=== PATIENT | female | born 1960 | race Two or more races ===

== ENCOUNTER 2024-07-18 20:18 | Inpatient (IN) | payer OTHER, MEDICAID ==
[2024-07-17] MEDS: MAGNESIUM SULFATE/D5W 100 ML IV SCH (01:15)
[~2024-07-18] VITALS: Ht 162.6 cm; Wt 81.6 kg
[2024-07-18 21:15] LABS: BASOPHILS # (AUTO) 0.1 K/UL (0.0-0.2); BASOPHILS % (AUTO) 0.9 % (0.0-2.0); HEMATOCRIT 30.5 % (31.2-41.9); HEMOGLOBIN 9.8 g/dL (10.9-14.3); LYMPHOCYTES # (AUTO) 1.2 K/uL (0.8-4.8); LYMPHOCYTES % (AUTO) 11.8 % (20.5-51.5); MEAN CORPUSCULAR HEMOGLOBIN 20.6 uug (24.7-32.8); MEAN CORPUSCULAR HGB CONC 32 g/dL (32.3-35.6); MEAN CORPUSCULAR VOLUME 64.4 fL (75.5-95.3); MONOCYTES # (AUTO) 0.5 K/uL (0.1-1.30); MONOCYTES % (AUTO) 4.5 % (0.0-11.0); NEUTROPHILS # (AUTO) 8.2 K/uL (1.8-8.9); NEUTROPHILS % (AUTO) 82.8 % (38.5-71.5); PLATELET COUNT (AUTO) 307 K/uL (179-408); RED BLOOD CELL COUNT(AUTO) 4.74 MIL/uL (3.63-4.92); RED CELL DISTRIBUTION WIDTH 18.8 % (12.3-17.7); WHITE BLOOD COUNT (AUTO) 9.9 K/uL (3.8-11.8)
[2024-07-18 21:17] LABS: DIFFERENTIAL COMMENT 1
[2024-07-18 21:33] LABS: ALANINE AMINOTRANSFERASE 27 U/L (14-59); ALBUMIN 3.2 g/dL (3.4-5.0); ALKALINE PHOSPHATASE 131 U/L (50-136); ASPARTATE AMINOTRANSFERASE 16 U/L (15-37); BILIRUBIN,DIRECT 0.3 mg/dL (0.0-0.2); CALCIUM 9.5 mg/dL (8.5-10.1); CARBON DIOXIDE 27 mmol/L (21-32); CHLORIDE 99 mmol/L (98-107); CREATININE 0.7 mg/dL (0.6-1.3); GLUCOSE 309 mg/dL (74-106); LIPASE 52 U/L (16-77); POTASSIUM 3.1 mmol/L (3.5-5.1); SODIUM SERUM 141 mmol/L (136-145); TOTAL PROTEIN, SERUM 7.9 g/dL (6.4-8.2); UREA NITROGEN, BLOOD 19 mg/dL (7-18)
[2024-07-18 21:36] LABS: AMMONIA < 10 umol/L (11-32)
[2024-07-18 21:40] LABS: THYROID STIMULATING HORMONE 2.845 mIU/mL (0.358-3.740)
[2024-07-18] MEDS: IV NS 1000 ML 1,000 ML IV ONE (22:00)
[2024-07-18] MEDS ORDERED: MORPHINE SULFATE 2 MG/1 ML DISP.SYRIN ONE (22:03)
[2024-07-18] MEDS ORDERED: ONDANSETRON 4 MG/2 ML VIAL ONE (22:03)
[2024-07-18] MEDS: ONDANSETRON 4 MG/2 ML VIAL IV ONE (22:12)
[2024-07-18] MEDS: MORPHINE SULFATE 2 MG/1 ML DISP.SYRIN IV ONE (22:14)
[2024-07-18] MEDS: POTASSIUM CHLORIDE 20 MEQ TAB.PRT.SR PO ONE (23:15)
[2024-07-19 00:59] LABS: *BILIRUBIN,URIN NEGATIVE (NEGATIVE); *BLOOD, URINE NEGATIVE (NEGATIVE); *CLARITY,URINE CLEAR (CLEAR); *COLOR,URINE YELLOW (YELLOW); *KETONES,URINE 1+ (NEGATIVE); *PROTEIN,URINE NEGATIVE (NEGATIVE); *UROBILINOGEN,URINE 0.2 E.U./dl (NORMAL); LEUKOCYTE ESTERASE ,URINE NEGATIVE (NEGATIVE); NITRITE, URINE NEGATIVE (NEGATIVE); PH,URINE 6.5 (5.0-8.0)
[2024-07-19 01:01] LABS: UGLUCOSE 2+ (NEGATIVE)
[2024-07-19] MEDS ORDERED: ALBU8.5H8 INH (01:08)
[2024-07-19] MEDS ORDERED: FURO20TA4 PO (01:08)
[2024-07-19] MEDS ORDERED: METO-357 PO (01:08)
[2024-07-19] MEDS ORDERED: OMEP40CA21 PO (01:08)
[2024-07-19] MEDS ORDERED: SAXA5TAB PO (01:08)
[2024-07-19] MEDS ORDERED: GLIM4TAB37 PO (01:08)
[2024-07-19] MEDS ORDERED: MECL-159 PO (01:08)
[2024-07-19] MEDS ORDERED: MELO-107 PO (01:08)
[2024-07-19] MEDS ORDERED: INSU100V7 SQ ×2 (01:09)
[2024-07-19] MEDS: IV NS 1000 ML 1,000 ML IV ONE (01:12)
[2024-07-19 01:42] LABS: RBC,URINE 0-3 /HPF (0-3)
[2024-07-19 01:43] LABS: BACTERIA,URINE MODERATE /HPF (NONE SEEN); SQUAMOUS EPITHELIAL CELL,UR FEW /HPF (NONE SEEN)
[2024-07-19] MEDS ORDERED: CEFTRIAXONE /D5W 50ML IVPB **ER PYXIS IV ONE (02:36)
[2024-07-19] MEDS: ACETAMINOPHEN 500 MG TABLET PO ONE (02:47)
[2024-07-19] MEDS: CEFTRIAXONE 1 G in IV DEXTROSE 5% 50 ML IV ONE (02:47)
[2024-07-19] MEDS ORDERED: DEXTROSE 50% 50 ML DISP.SYRIN IV PRN (03:00)
[2024-07-19] MEDS ORDERED: REMEDY ESSENTIAL ZINC PASTE 113 GM TP PRN (03:00)
[2024-07-19] MEDS ORDERED: HYDROCODONE/APAP 10-325 MG TABLET PO PRN (03:00)
[2024-07-19] MEDS ORDERED: KETOROLAC TROMETHAMINE 30 MG INJ IM PRN (07:15)
[2024-07-19 07:18] LABS: ALBUMIN 2.6 g/dL (3.4-5.0); BILIRUBIN,TOTAL 1.4 mg/dL (0.2-1.0); CALCIUM 8.6 mg/dL (8.5-10.1); CREATININE 1.1 mg/dL (0.6-1.3); MAGNESIUM 1.2 mg/dL (1.8-2.4); TOTAL PROTEIN, SERUM 6.6 g/dL (6.4-8.2)
[2024-07-19] MEDS: IV NS 1000 ML 1,000 ML IV PRN ×2 (07:57→14:54)
[2024-07-19] MEDS: INSULIN REGULAR, HUMAN 1000 UNIT/10 ML VIAL SQ PRN (07:59)
[2024-07-19] MEDS: BLOOD SUGAR DIAGNOSTIC 1 EACH STRIP VI SCH (07:59)
[2024-07-19 08:03] VITALS: BP 97/46; TEMP 99.6; O2SAT 100
[2024-07-19 08:12] LABS: LACTIC ACID 3.4 mmol/L (0.4-2.0)
[2024-07-19] MEDS: METOPROLOL SUCCINATE XL 50 MG TAB.SR.24H PO SCH (08:39)
[2024-07-19] MEDS ORDERED: Medication Not On Formulary EA (Omeprazole 1 CAP) PO SCH (09:00)
[2024-07-19] MEDS ORDERED: PIPERACILLIN SODIUM/TAZOBACTAM 3.375 G in IV DEXTROSE 5% 50 ML IV SCH ×2 (09:30→12:00)
[2024-07-19] MEDS: POTASSIUM CHLORIDE 50 ML IV SCH (09:55)
[2024-07-19] MEDS: MAGNESIUM SULFATE/D5W 100 ML IV SCH (09:56)
[2024-07-19] MEDS: PIPERACILLIN SODIUM/TAZOBACTAM 3.375 G in IV DEXTROSE 5% 100 ML IV SCH (10:32)
[2024-07-19] MEDS: ACETAMINOPHEN 325 MG TABLET PO PRN (10:34)
[2024-07-19 11:06] VITALS: BP 102/55; TEMP 100.8; O2SAT 99
[2024-07-19 12:15] LABS: BASOPHILS # (AUTO) 0.1 K/UL (0.0-0.2); BASOPHILS % (AUTO) 0.4 % (0.0-2.0); HEMATOCRIT 29.1 % (31.2-41.9); HEMOGLOBIN 9.1 g/dL (10.9-14.3); LYMPHOCYTES # (AUTO) 0.9 K/uL (0.8-4.8); LYMPHOCYTES % (AUTO) 5.3 % (20.5-51.5); MEAN CORPUSCULAR HEMOGLOBIN 20.3 uug (24.7-32.8); MEAN CORPUSCULAR HGB CONC 31 g/dL (32.3-35.6); MEAN CORPUSCULAR VOLUME 64.9 fL (75.5-95.3); MONOCYTES # (AUTO) 1.3 K/uL (0.1-1.30); MONOCYTES % (AUTO) 7.5 % (0.0-11.0); NEUTROPHILS % (AUTO) 86.8 % (38.5-71.5); PLATELET COUNT (AUTO) 251 K/uL (179-408); RED BLOOD CELL COUNT(AUTO) 4.48 MIL/uL (3.63-4.92); RED CELL DISTRIBUTION WIDTH 18.5 % (12.3-17.7); WHITE BLOOD COUNT (AUTO) 17.3 K/uL (3.8-11.8)
[2024-07-19 12:33] LABS: DIFFERENTIAL COMMENT 1
[2024-07-19] MEDS: VANCOMYCIN IV 1,250 MG in IV DEXTROSE 5% 250 ML IV SCH (15:06)
[2024-07-19 15:07] VITALS: BP 101/61; TEMP 100.9; O2SAT 92
[2024-07-19 15:17] VITALS: BP 96/57; TEMP 98.4; O2SAT 98
[2024-07-19] MEDS ORDERED: MEROPENEM 500 MG in IV NORMAL SALINE 50 ML IV SCH (16:15)
[2024-07-19 16:23] LABS: BAND % (MANUAL) 23 % (0-10); LYMPHOCYTES % (MANUAL) 7 % (20-40); MONOCYTES % (MANUAL) 8 % (2-10); NEUTROPHILS % (MANUAL) 63 % (42-75); PLATELET ESTIMATE ADEQUATE
[2024-07-19 16:24] LABS: ANISOCYTOSIS 2+; HYPOCHROMASIA 2+
[2024-07-19 16:36] VITALS: BP 96/57; TEMP 98.4; O2SAT 98
[2024-07-19] MEDS: MEROPENEM 500 MG in IV NORMAL SALINE 50 ML IV SCH (18:08)
[2024-07-19] MEDS ORDERED: METO50TA16 PO (18:13)
[2024-07-19] MEDS ORDERED: METF-440 PO (18:16)
[2024-07-19 19:00] VITALS: BP 121/49; TEMP 98.8; O2SAT 99
[2024-07-19] MEDS: INSULIN REGULAR, HUMAN 300 UNITS/3 ML VIAL SQ PRN (20:30)
[2024-07-19] MEDS: INSULIN GLARGINE,HUM 300 UNITS/3 ML CARTRIDGE SQ SCH (20:31)
[2024-07-19] MEDS: MAGNESIUM HYDROXIDE 30 ML LIQUID UDC PO PRN (23:22)
[2024-07-20] VITALS (11 sets, daily range): BP systolic 111–142; BP diastolic 47–81; TEMP 97.7–102.3; O2SAT 95–98
[2024-07-20] MEDS: ONDANSETRON 4 MG/2 ML VIAL IV PRN (04:06)
[2024-07-20] MEDS: PANTOPRAZOLE SODIUM 40 MG TABLET.DR PO SCH (06:33)
[2024-07-20 06:56] LABS: BASOPHILS % (AUTO) 0.3 % (0.0-2.0); HEMATOCRIT 27.3 % (31.2-41.9); HEMOGLOBIN 8.8 g/dL (10.9-14.3); LYMPHOCYTES # (AUTO) 1.1 K/uL (0.8-4.8); LYMPHOCYTES % (AUTO) 10.9 % (20.5-51.5); MEAN CORPUSCULAR HGB CONC 32 g/dL (32.3-35.6); MEAN CORPUSCULAR VOLUME 65.7 fL (75.5-95.3); MONOCYTES # (AUTO) 0.6 K/uL (0.1-1.30); NEUTROPHILS # (AUTO) 8.6 K/uL (1.8-8.9); NEUTROPHILS % (AUTO) 82.8 % (38.5-71.5); PLATELET COUNT (AUTO) 192 K/uL (179-408); RED BLOOD CELL COUNT(AUTO) 4.16 MIL/uL (3.63-4.92); RED CELL DISTRIBUTION WIDTH 18.5 % (12.3-17.7); WHITE BLOOD COUNT (AUTO) 10.4 K/uL (3.8-11.8)
[2024-07-20 07:05] LABS: DIFFERENTIAL COMMENT 1
[2024-07-20 07:17] LABS: CALCIUM 8.2 mg/dL (8.5-10.1); CREATININE 0.6 mg/dL (0.6-1.3); MAGNESIUM 2.6 mg/dL (1.8-2.4); PHOSPHOROUS 1.8 mg/dL (2.5-4.9); POTASSIUM 3.7 mmol/L (3.5-5.1)
[2024-07-20] MEDS: METOPROLOL TARTRATE 50 MG TABLET PO SCH (08:34)
[2024-07-20] MEDS ORDERED: CEFTRIAXONE 1 G in IV DEXTROSE 5% 50 ML IV SCH (09:00)
[2024-07-20] MEDS: NEUTRA PHOS PACKET PO ONE (16:33)
[2024-07-21] MEDS: VANCOMYCIN IV 1,250 MG in IV DEXTROSE 5% 250 ML IV SCH (03:25)
[2024-07-21 04:13] VITALS: O2SAT 98
[2024-07-21 05:00] VITALS: BP 148/77; TEMP 99.1; O2SAT 97
[2024-07-21 06:51] LABS: CREATININE 0.5 mg/dL (0.6-1.3); PHOSPHOROUS 1.9 mg/dL (2.5-4.9); POTASSIUM 3.6 mmol/L (3.5-5.1)
[2024-07-21 07:15] LABS: BASOPHILS % (AUTO) 0.2 % (0.0-2.0); HEMATOCRIT 25.3 % (31.2-41.9); HEMOGLOBIN 7.9 g/dL (10.9-14.3); LYMPHOCYTES # (AUTO) 1.4 K/uL (0.8-4.8); LYMPHOCYTES % (AUTO) 16.3 % (20.5-51.5); MEAN CORPUSCULAR HEMOGLOBIN 20.6 uug (24.7-32.8); MEAN CORPUSCULAR HGB CONC 31 g/dL (32.3-35.6); MEAN CORPUSCULAR VOLUME 65.6 fL (75.5-95.3); MONOCYTES # (AUTO) 0.6 K/uL (0.1-1.30); MONOCYTES % (AUTO) 7.4 % (0.0-11.0); NEUTROPHILS # (AUTO) 6.4 K/uL (1.8-8.9); NEUTROPHILS % (AUTO) 76.1 % (38.5-71.5); PLATELET COUNT (AUTO) 185 K/uL (179-408); RED BLOOD CELL COUNT(AUTO) 3.86 MIL/uL (3.63-4.92); RED CELL DISTRIBUTION WIDTH 18.6 % (12.3-17.7); WHITE BLOOD COUNT (AUTO) 8.4 K/uL (3.8-11.8)
[2024-07-21 07:34] LABS: DIFFERENTIAL COMMENT 1
[2024-07-21 11:54] VITALS: BP 109/49; TEMP 97.8; O2SAT 96
[2024-07-21] MEDS: MEROPENEM 500 MG in IV NORMAL SALINE 50 ML IV SCH (14:25)
[2024-07-21 15:56] VITALS: BP 122/46; TEMP 99.3; O2SAT 97
[2024-07-21] MEDS: NEUTRA PHOS PACKET PO ONE (18:48)
[2024-07-21 19:45] VITALS: BP 128/46; TEMP 98.3; O2SAT 95
[2024-07-22 04:39] VITALS: BP 156/75; TEMP 98.7; O2SAT 96
[2024-07-22 07:04] LABS: CALCIUM 8.6 mg/dL (8.5-10.1); CARBON DIOXIDE 25 mmol/L (21-32); CHLORIDE 104 mmol/L (98-107); CREATININE 0.4 mg/dL (0.6-1.3); GLUCOSE 229 mg/dL (74-106); PHOSPHOROUS 2.6 mg/dL (2.5-4.9); POTASSIUM 3.7 mmol/L (3.5-5.1); SODIUM SERUM 139 mmol/L (136-145); UREA NITROGEN, BLOOD 3 mg/dL (7-18)
[2024-07-22 11:08] VITALS: BP 147/74; TEMP 98.4; O2SAT 95
[2024-07-22 16:00] VITALS: BP 115/75; TEMP 98.6; O2SAT 95
[2024-07-22] MEDS: GLUCERNA SHAKE 237 ML CAN PO SCH (16:35)
[2024-07-22 19:00] VITALS: BP 131/64; TEMP 99.5; O2SAT 95
[2024-07-22 20:55] VITALS: O2SAT 95
[2024-07-23 05:30] VITALS: BP 161/79; TEMP 99.2; O2SAT 98
[2024-07-23 08:22] LABS: BASOPHILS % (AUTO) 0.7 % (0.0-2.0); HEMATOCRIT 27.5 % (31.2-41.9); HEMOGLOBIN 8.8 g/dL (10.9-14.3); LYMPHOCYTES # (AUTO) 1.8 K/uL (0.8-4.8); LYMPHOCYTES % (AUTO) 33.9 % (20.5-51.5); MEAN CORPUSCULAR HEMOGLOBIN 20.4 uug (24.7-32.8); MEAN CORPUSCULAR HGB CONC 32 g/dL (32.3-35.6); MEAN CORPUSCULAR VOLUME 64.1 fL (75.5-95.3); MONOCYTES # (AUTO) 0.6 K/uL (0.1-1.30); NEUTROPHILS # (AUTO) 2.9 K/uL (1.8-8.9); NEUTROPHILS % (AUTO) 54.4 % (38.5-71.5); PLATELET COUNT (AUTO) 228 K/uL (179-408); RED BLOOD CELL COUNT(AUTO) 4.29 MIL/uL (3.63-4.92); RED CELL DISTRIBUTION WIDTH 18.2 % (12.3-17.7); WHITE BLOOD COUNT (AUTO) 5.4 K/uL (3.8-11.8)
[2024-07-23] MEDS: ENOXAPARIN SODIUM 40 MG/0.4 ML DISP.SYRIN SQ SCH (08:34)
[2024-07-23 08:53] LABS: DIFFERENTIAL COMMENT 1
[2024-07-23 08:55] LABS: CALCIUM 9.2 mg/dL (8.5-10.1); CARBON DIOXIDE 26 mmol/L (21-32); CHLORIDE 100 mmol/L (98-107); CREATININE 0.4 mg/dL (0.6-1.3); GLUCOSE 264 mg/dL (74-106); POTASSIUM 3.6 mmol/L (3.5-5.1); SODIUM SERUM 138 mmol/L (136-145); UREA NITROGEN, BLOOD 3 mg/dL (7-18)
[2024-07-23 11:08] VITALS: BP 140/53; TEMP 99.7; O2SAT 94
[2024-07-23 15:27] VITALS: BP 153/60; TEMP 98.3; O2SAT 95
[2024-07-23 19:00] VITALS: BP 124/97; TEMP 98.8; O2SAT 95
[2024-07-23 19:57] VITALS: O2SAT 96
[2024-07-24 06:24] VITALS: BP 122/59; TEMP 97.6; O2SAT 95
[2024-07-24 11:33] VITALS: BP 126/51; TEMP 98.6; O2SAT 95
[2024-07-24 15:59] VITALS: BP 130/49; TEMP 98.9; O2SAT 99
[2024-07-24 19:00] VITALS: BP 101/50; TEMP 99.6; O2SAT 100
[2024-07-24 20:00] VITALS: BP 101/50; TEMP 99.1; O2SAT 100
[2024-07-25 06:53] VITALS: BP 124/94; TEMP 98.5; O2SAT 95
[2024-07-25 11:36] VITALS: BP 129/60; TEMP 98.4; O2SAT 97
[2024-07-25 15:52] VITALS: BP 141/74; TEMP 98.9; O2SAT 97
[2024-07-25 17:00] VITALS: BP 128/64
[2024-07-25] MEDS ORDERED: INSULIN GLARGINE,HUM 300 UNITS/3 ML CARTRIDGE SQ SCH (21:00)
== END 2024-07-25 18:30 | disposition home health service (06) | DRG 871 ==
LOC: ER 20:20 → TELE3 07-19 05:27 → MEDSURG3 07-20 10:04
PROVIDERS: ADMIT Nurse Practitioner Acute Care; ATTEND Internal Medicine
PROC: 05HC33Z Insertion of Infusion Device into Left Basilic Vein, Percutaneous Approach (ICD-10-PCS; principal; 2024-07-19)
DX: A41.51 Sepsis due to Escherichia coli [E. coli] (principal); G93.41 Metabolic encephalopathy; Z16.12 Extended spectrum beta lactamase (ESBL) resistance; N10 Acute pyelonephritis; E87.20 Acidosis, unspecified; R65.20 Severe sepsis without septic shock; Z79.4 Long term (current) use of insulin; Z79.84 Long term (current) use of oral hypoglycemic drugs; Z79.899 Other long term (current) drug therapy; D50.9 Iron deficiency anemia, unspecified; K76.0 Fatty (change of) liver, not elsewhere classified; E83.42 Hypomagnesemia; E87.6 Hypokalemia; E66.9 Obesity, unspecified; Z68.30 Body mass index [BMI] 30.0-30.9, adult; Z71.3 Dietary counseling and surveillance; E11.9 Type 2 diabetes mellitus without complications; I10 Essential (primary) hypertension; R32 Unspecified urinary incontinence; N20.0 Calculus of kidney
CPT/HCPCS: 36415; 70450; 71045; 83605; 83690; 83735; 84100; 84443; 84484; 85025; 85730; 87040; 87077; 87086; A4606; A4663; A9150; C1758; G0378; J0696; J1650; J1815; J2185; J2270; J2405; J2543; J3475; J3480; J7040; J7050

== ENCOUNTER 2024-08-01 13:07 | Emergency (ER) | payer OTHER, MEDICAID ==
[~2024-08-01] VITALS: Ht 152.4 cm; Wt 86.2 kg
[~2024-08-01 13:07] MED LIST: ALBU8.5H8 INH; FURO20TA4 PO; INSU100V7 SQ; MECL-159 PO; METF-440 PO; METO50TA16 PO; OMEP40CA21 PO
[2024-08-01 13:43] VITALS: BP 117/72; O2SAT 94
== END 2024-08-01 13:44 | disposition home or self-care (01) ==
LOC: ER 13:07
DX: Z45.2 Encounter for adjustment and management of vascular access device (principal); E11.9 Type 2 diabetes mellitus without complications; Z79.899 Other long term (current) drug therapy; Z88.8 Allergy status to other drugs, medicaments and biological substances
CPT/HCPCS: A4606; A4663